=== PATIENT | female | born 1980 | race Caucasian/White ===

== ENCOUNTER → 2017-11-12 | Outpatient (REF) | payer BC | LOC: M LAB REF 14:48 | DX: K51.30 Ulcerative (chronic) rectosigmoiditis without complications (principal) | CPT/HCPCS: 87507 ==

== ENCOUNTER 2018-09-01 10:06 | Day surgery (SDC) | payer BC ==
[~2018-09-01] VITALS: Ht 167.6 cm; Wt 88.5 kg
[~2018-09-01 10:06] MED LIST: CELE20TA PO; CLAR1TAB13 PO; FOLI1TAB11 PO; KEPP10002 PO; LAMI1TAB8 PO; LIAL1.2T PO; LIDOCAINE 2% INJ 100 MG/5 ML SDV (FOR ANES.) As Ordered ONE; PROPOFOL 200 MG/20 ML VIAL As Ordered ONE
[2018-09-01] MEDS ORDERED: NS 1,000 ML IV ONE (10:30)
--- NOTE | 2018-09-01 11:09 | ROOR ---
Patient Name: Peggy Mcmahan Procedure Date: 09/01/2018 10:41 AM Date of : 1980 Age: 38 Room: [facility] Gender: Female Note Status: Finalized Procedure: Colonoscopy Indications: High risk colon cancer surveillance: Ulcerative left sided colitis of 15 (or more) years duration Providers: Aquilino VEGA MD Referring MD: Waqas CHA Requesting Provider: Medicines: Monitored Anesthesia Care Complications: No immediate complications. Procedure: Pre-Anesthesia Assessment: - The heart rate, respiratory rate, oxygen saturations, blood pressure, adequacy of pulmonary ventilation, and response to care were monitored throughout the procedure. The Colonoscope was introduced through the anus and advanced to 15 cm into the ileum. The colonoscopy was performed without difficulty. The patient tolerated the procedure well. The quality of the bowel preparation was good. Findings: The perianal and digital rectal examinations were normal. Inflammation characterized by erythema and granularity was found in a continuous and circumferential pattern from the anus to the descending colon. This was mild in severity, and when compared to previous examinations, the findings are improved. The exam was otherwise normal throughout the examined colon. The terminal ileum appeared normal. Biopsies were taken with a cold forceps for histology. Background biopsies were taken for histology with a cold forceps from the entire colon. These biopsy specimens were sent to Pathology. Impression: - Left-sided ulcerative colitis: Mild inflammation was seen mainly in the distal rectum. Minimal Inflammation (if any) was found from the the rectosigmoid to descending colon. - The rest of the colon is normal - The examined portion of the ileum was normal. - Segmental background biopsies were taken from the entire colon. Recommendation: - Telephone endoscopist for pathology results in 2 weeks. - Repeat colonoscopy 1-3 yrs for surveillance based on pathology results. - Await pathology results. Aquilino Vega MD Aquilino VEGA MD 09/01/2018 11:08:47 AM This report has been signed electronically. Number of Addenda: 0 Note Initiated On: 09/01/2018 10:41 AM Estimated Blood Loss: Estimated blood loss: none.
[2018-09-01 11:25] VITALS: BP 136/96
== END 2018-09-01 11:55 | disposition home or self-care (01) ==
LOC: M OPP 10:06
PROVIDERS: ATTEND Internal Medicine Gastroenterology
DX: K51.50 Left sided colitis without complications (principal)

== ENCOUNTER → 2018-11-07 | Outpatient (CLI) | payer BC ==
[~2018-11-07] MED LIST changes: -LIDOCAINE 2% INJ 100 MG/5 ML SDV (FOR ANES.) As Ordered ONE; +NAPR-837 PO; +NUVAMIS2 PO; -PROPOFOL 200 MG/20 ML VIAL As Ordered ONE; +ROBA500T PO; +[UNRECOGNIZED DRUG - CODE] PO
--- NOTE | 2018-11-08 08:33 | REP ---
MR LUMBAR SPINE WITHOUT CONTRAST: HISTORY: Back pain. A rudimentary disc is present at the S1-2 level. Decreased signal intensity on T2-weighted images is present in the L3-4 through L5-S1 intervertebral discs. The L4-5 intervertebral disc is decreased in height. These findings are consistent with disc degeneration. There is no disc bulge or herniation at the L1-2 and L2-3 levels. The nerves exit the neural foramina without compression. A diffuse disc bulge and small central disc protrusion are present at the L3-4 level. There is minimal compression of the thecal sac. The L3 nerves exit the neural foramina without compression. A diffuse disc bulge is present at the L4-5 level. This abuts the thecal sac. There is hypertrophy of the posterior articulating facets. The L4 nerves exit the neural foramina without compression. A diffuse disc bulge and small central disc protrusion are present at the L5-S1 level. There is minimal compression of the thecal sac. There is hypertrophy of the posterior articulating facets. The L5 nerves exit the neural foramina without compression. The conus medullaris is normal in appearance terminating at the level of the L1-2 intervertebral disc. Normal signal intensity is present in the lumbar vertebral bodies. IMPRESSION: 1. Diffuse disc bulge and small central disc protrusion at the L3-4 and L5-S1 levels with minimal thecal sac compression. 2. Diffuse disc bulge at the L4-5 level. This abuts the thecal sac. Electronically Signed by Ranulfo Kim MD 11/08/2018 08:39 A
== END ==
LOC: M RAD 16:02
PROVIDERS: ATTEND Physician Assistant
DX: M54.5 Low back pain (principal)

== ENCOUNTER → 2019-05-26 | Outpatient (REF) | payer BC ==
[2019-05-26 13:12] LABS: BASO % 0.5 % (0.0-1.0); EOS # 0.1 10^3/uL (0.0-0.5); EOS % 2.2 % (0.0-3.0); HEMATOCRIT 41.4 % (36.0-47.0); HEMOGLOBIN 13.1 g/dl (12.0-15.5); LYMPH # 1.8 10^3/uL (1.5-5.0); LYMPH % 30.9 % (24.0-44.0); MEAN CORPUSCULAR HEMOGLOBIN 28.5 pg (27.0-33.0); MEAN CORPUSCULAR HGB CONC 31.6 g/dl (32.0-36.5); MEAN CORPUSCULAR VOLUME 90.2 fl (80.0-96.0); MONO # 0.5 10^3/uL (0.0-0.8); MONO % 7.8 % (0.0-5.0); NEUTROPHILS # 3.4 10^3/uL (1.5-8.5); NEUTROPHILS % 58.3 % (36.0-66.0); PLATELET COUNT, AUTOMATED 347 10^3/uL (150-450); RED BLOOD COUNT 4.59 10^6/uL (4.00-5.40); WHITE BLOOD COUNT 5.9 10^3/uL (4.0-10.0)
[2019-05-26 13:41] LABS: ALBUMIN 3.3 GM/DL (3.2-5.2); ALT/SGPT 18 U/L (12-78); BILIRUBIN,TOTAL 0.4 MG/DL (0.2-1.0); BLOOD UREA NITROGEN 8 MG/DL (7-18); CALCIUM LEVEL 9.1 MG/DL (8.5-10.1); CARBON DIOXIDE LEVEL 24 MEQ/L (21-32); CHLORIDE LEVEL 105 MEQ/L (98-107); CREATININE FOR GFR 1.04 MG/DL (0.55-1.30); GLOMERULAR FILTRATION RATE > 60.0 (>60); GLUCOSE, FASTING 83 MG/DL (70-100); POTASSIUM SERUM 4.2 MEQ/L (3.5-5.1); SODIUM LEVEL 138 MEQ/L (136-145); TOTAL PROTEIN 7.4 GM/DL (6.4-8.2)
[2019-05-28 14:39] LABS: LAMOTRIGINE (LAMICTAL) 2.4 ug/mL (2.0-20.0); LEVETIRACETAM (KEPPRA) 25.3 ug/mL (10.0-40.0)
== END ==
LOC: M LABNEURO 10:28
PROVIDERS: ATTEND Psychiatry & Neurology Neurology
DX: R56.9 Unspecified convulsions (principal)

== ENCOUNTER → 2020-02-01 | Outpatient (REF) | payer BC ==
[~2020-02-01] MED LIST changes: +ENTY1INJ IV; +LEXA1TAB PO; +MESA50SU PR
== END ==
LOC: M LAB REF 12:13
PROVIDERS: ATTEND Physician Assistant Medical
DX: K51.311 Ulcerative (chronic) rectosigmoiditis with rectal bleeding (principal)

== ENCOUNTER → 2020-02-08 | Outpatient (CLI) | payer BC | LOC: M LABSMTC 12:02 | PROVIDERS: ATTEND Anesthesiology | DX: Z01.818 Encounter for other preprocedural examination (principal); Z11.59 Encounter for screening for other viral diseases | CPT/HCPCS: C9803; U0003 ==

== ENCOUNTER 2020-02-13 08:33 | Day surgery (SDC) | payer BC ==
[~2020-02-13] VITALS: Ht 165.1 cm; Wt 96.6 kg
[~2020-02-13 08:33] MED LIST changes: -ENTY1INJ IV; +NS 1,000 ML IV ONE
[2020-02-13] MEDS ORDERED: LIDOCAINE 2% 100MG/5ML SDV (FOR ANES.) As Ordered ONE (09:48)
[2020-02-13] MEDS ORDERED: propofoL 200 MG/20 ML VIAL As Ordered ONE (09:48)
--- NOTE | 2020-02-13 10:35 | ROOR ---
Patient Name: Peggy Mcmahan Procedure Date: 02/13/2020 10:09 AM Date of : 1980 Age: 39 Room: [facility] Gender: Female Note Status: Finalized Procedure: Colonoscopy Indications: Follow-up of left-sided chronic ulcerative colitis, Disease activity assessment of left-sided chronic ulcerative colitis, Assess therapeutic response to therapy of left-sided chronic ulcerative colitis. Worsened symptoms. Failing 5-ASA (Lialda/Canasa) Providers: Aquilino JEFFREY MD Referring MD: Wil Rothman Requesting Provider: Medicines: Monitored Anesthesia Care Complications: No immediate complications. Procedure: Pre-Anesthesia Assessment: - The heart rate, respiratory rate, oxygen saturations, blood pressure, adequacy of pulmonary ventilation, and response to care were monitored throughout the procedure. The Colonoscope was introduced through the anus and advanced to 10 cm into the ileum. The colonoscopy was performed without difficulty. The patient tolerated the procedure well. The quality of the bowel preparation was good. Findings: The perianal and digital rectal examinations were normal. Inflammation was found in a continuous and circumferential pattern from the anus to the descending colon. The area from descending colon to cecum was spared. This was moderate in severity, and when compared to previous examinations, the findings are worsened. Biopsies were taken with a cold forceps for histology. The terminal ileum appeared normal. Impression: - Proctosigmoid ulcerative colitis. Inflammation was found from the anus to the descending colon. This was moderate in severity, worsened compared to previous examinations. Biopsied. - The examined portion of the ileum was normal. Recommendation: - Use Entyvio (vedolizumab) intravenous infusion: 300 mg IV once per week at week 0, week 2, and week 6, then every 8 weeks. - Discontinue Lialda (mesalamine) 2 weeks after start of entyvio. - Discontinue Canasa (mesalamine) 2 weeks after stqart of entyvio. - To discuss todays findings, my office will call you in the next few days to schedule a follow up appointment. Aquilino Jeffrey MD Aquilino JEFFREY MD 02/13/2020 10:35:08 AM Electronically signed by Aquilino JEFFREY MD Number of Addenda: 0 Note Initiated On: 02/13/2020 10:09 AM Estimated Blood Loss: Estimated blood loss: none.
[2020-02-13 10:58] VITALS: BP 131/80
== END 2020-02-13 11:00 | disposition home or self-care (01) ==
LOC: M OPP 08:33
PROVIDERS: ATTEND Internal Medicine Gastroenterology
DX: K51.50 Left sided colitis without complications (principal); K51.30 Ulcerative (chronic) rectosigmoiditis without complications; Z88.0 Allergy status to penicillin

== ENCOUNTER 2020-03-13 09:21 | Outpatient (CLI) | payer BC ==
[~2020-03-13] VITALS: Ht 160 cm; Wt 88.2 kg
[~2020-03-13 09:21] MED LIST changes: -NS 1,000 ML IV ONE; +VEDOLIZUMAB 300 MG in NS 250 ML IV ONE
[2020-03-13 09:30] VITALS: BP 161/65
[2020-03-13 11:00] VITALS: BP 124/72
== END 2020-03-13 11:00 | disposition home or self-care (01) ==
LOC: M INFU 09:21
PROVIDERS: ATTEND Internal Medicine Gastroenterology
DX: K51.90 Ulcerative colitis, unspecified, without complications (principal)
CPT/HCPCS: 96365; J3380

== ENCOUNTER 2020-03-27 09:06 | Outpatient (CLI) | payer BC ==
[~2020-03-27] VITALS: Ht 160 cm; Wt 88.1 kg
[2020-03-27 09:05] VITALS: BP 121/83
[2020-03-27] MEDS ORDERED: ENTY1INJ IV (09:41)
[2020-03-27 10:20] VITALS: BP 112/68
== END 2020-03-27 10:20 | disposition home or self-care (01) ==
LOC: M INFU 09:06
PROVIDERS: ATTEND Internal Medicine Gastroenterology
DX: K51.90 Ulcerative colitis, unspecified, without complications (principal)
CPT/HCPCS: 96365; J3380

== ENCOUNTER → 2020-04-11 | Outpatient (CLI) | payer BC ==
[~2020-04-11] MED LIST changes: +ENTY1INJ IV; -VEDOLIZUMAB 300 MG in NS 250 ML IV ONE
== END ==
LOC: M LAB 10:18
PROVIDERS: ATTEND Internal Medicine Gastroenterology
DX: K51.90 Ulcerative colitis, unspecified, without complications (principal)

== ENCOUNTER → 2023-05-27 | Day surgery (SDC) | payer BC ==
[~2023-05-27] VITALS: Ht 167.6 cm; Wt 97.1 kg
[~2023-05-27] MED LIST changes: +ETON1VAG7 PO; +NS 1,000 ML IV ONE; -NUVAMIS2 PO; +propofoL 200 MG/20 ML VIAL As Ordered ONE
[2023-05-27 12:01] VITALS: TEMP 97.7
[2023-05-27 12:24] VITALS: BP 132/82; O2SAT 100
== END | disposition home or self-care (01) ==
LOC: M OPP 11:08
PROVIDERS: ATTEND Internal Medicine Gastroenterology
DX: K63.5 Polyp of colon (principal); Z79.1 Long term (current) use of non-steroidal anti-inflammatories (NSAID); Z79.899 Other long term (current) drug therapy; Z88.0 Allergy status to penicillin; Z88.8 Allergy status to other drugs, medicaments and biological substances

== ENCOUNTER → 2024-11-30 | Outpatient (REF) | payer BC ==
[~2024-11-30] MED LIST changes: -NS 1,000 ML IV ONE; -propofoL 200 MG/20 ML VIAL As Ordered ONE
== END ==
LOC: M PLALAB 13:28
PROVIDERS: ATTEND Advanced Practice Midwife
DX: R87.610 Atypical squamous cells of undetermined significance on cytologic smear of cervix (ASC-US) (principal); R87.810 Cervical high risk human papillomavirus (HPV) DNA test positive